=== PATIENT | female | born 1980 | race Caucasian/White ===

== ENCOUNTER 2023-11-24 07:12 | Day surgery (SDC) | payer MEDICAID ==
[~2023-11-24] VITALS: Ht 154.9 cm; Wt 63.6 kg
[~2023-11-24 07:12] MED LIST: SODIUM CHLORIDE 0.9% 1,000 ML ONE
[2023-11-24] MEDS: SODIUM CHLORIDE 0.9% 1,000 ML IV ONE (08:53)
[2023-11-24] MEDS ORDERED: OXYGEN THERAPY IH SCH (20:00)
== END 2023-11-24 10:40 | disposition home or self-care (01) ==
LOC: SURGERY 07:12
PROVIDERS: ATTEND Specialist
DX: D50.9 Iron deficiency anemia, unspecified (principal); K62.89 Other specified diseases of anus and rectum; R19.5 Other fecal abnormalities; Z98.890 Other specified postprocedural states
CPT/HCPCS: 45380; 43239; 88305; C1769; J7030